=== PATIENT | male | born 1950 | race Hispanic/Latino ===

== ENCOUNTER 2017-12-30 07:45 | Inpatient (IN) | payer MEDICARE, OTHER ==
[2017-12-24 11:15] VITALS: BMI 20.7
[2018-01-01] MEDS ORDERED: Lactated Ringer's 1,000 ML IV ONE ×4 (07:45→14:05)
[2018-01-01] MEDS ORDERED: Propofol 10 mg/ml Inj (20 ML) ONE (07:55)
[2018-01-01] MEDS ORDERED: Midazolam 2 MG/2 ML VIAL ONE ×2 (07:55→13:10)
[2018-01-01] MEDS ORDERED: cefTRIAXone 1 gm 1 GM/100 ML BAG IVPB ONE (08:03)
[2018-01-01] MEDS ORDERED: Neostigmine Methylsulfate 3mg/3ml Syringe IV ONE (10:56)
[2018-01-01] MEDS ORDERED: Sodium Chloride 0.9% 20 ML IV ONE (11:17)
[2018-01-01] MEDS ORDERED: Bupivacaine 0.5% Inj(30mL) ONE (11:17)
[2018-01-01] MEDS ORDERED: Lactated Ringer's 500 ML IV SCH (12:00)
--- NOTE | 2018-01-01 13:36 | PCM.ANESB5 ---
Transverse Abdominis Block - Transverse Abdominis Plane Date of Procedure: 01/01/18 Anesthesiologist: Gt Pre-Procedure Diagnosis: BPH Procedure Performed: Transverse Abdominis Plane Nerve Block Left - Procedure Transverse Abdominis Plane Nerve Block: The procedure was explained to the patient that it is for post-operative pain management and would be performed after surgery. Consent was obtained prior to surgery after a thorough discussion with the patient regarding the benefits and possible complications of transverse abdominis plane block. After the surgery had concluded and before the patient emerged from general anesthesia, time-out was held with the circulating nurse to re-confirm the appropriate block. With the patient in supine position, the ultrasound probe was placed transverse to the abdominal wall at the mid-axillary line above the iliac crest of the appropriate side. The skin, subcutaneous tissue, fat, external oblique muscle, internal oblique muscle, and the transverse abdominis muscle were identified. The general area of the block site was then prepped with Betadine three times. At this point, a # 21-gauge Stimuplex 4-inch needle was inserted posterior to and in plane with the ultrasound probe and directed anteriorly. Needle was advanced under direct ultrasound visualization until it reached the plane between the internal oblique and transverse abdominis muscles. After appropriate placement, 2mL of local anesthetic solution was injected. When the transverse abdominis plane was observed expanding in an ellipsoid way, the rest of the solution was slowly injected. A total of 20 ml 0.25% bupivicaine was used for this block. The needle was then removed and sterile dressing was applied. Visualization attempted on right side, but unable. The patient had stable vital signs throughout and had no untoward complications after emergence from general anesthesia in the recovery room.
[2018-01-01] MEDS: ceFAZolin 1 GM in Sodium Chloride 0.9% 100 ML IVPB SCH ×2 (14:05→21:09)
[2018-01-01] MEDS: Dextrose 5%/0.45% NS 1,000 ML IV SCH (18:30)
[2018-01-02] MEDS: Lactated Ringer's 500 ML IV SCH ×17 (01:28→23:45)
[2018-01-02] MEDS: ceFAZolin 1 GM in Sodium Chloride 0.9% 100 ML IVPB SCH ×3 (05:25→21:37)
[2018-01-02 08:32] LABS: ALB/GLOB RATIO 1.2 (1.0-2.1); ALBUMIN 3.1 g/dL (3.5-5.0); ALT/SGPT 27 U/L (21-72); AST/SGOT 20 U/L (17-59); BLOOD UREA NITROGEN 11 mg/dL (9-20); GFR AFRICAN-AMERICAN > 60; GFR NON-AFRICAN AMERICAN > 60
[2018-01-02 08:33] LABS: BASO % 0.4 % (0.0-2.0); EOS # 0.1 K/uL (0.0-0.7); EOS % 1.4 % (0.0-4.0); LYMPH # 0.8 K/uL (1.0-4.3); LYMPH % 10.1 % (20.0-40.0); MEAN CORPUSCULAR HGB CONC 35.9 g/dL (33.0-37.0); MEAN PLATELET VOLUME 9.9 fL (7.2-11.7); MONO # 0.9 K/uL (0.0-0.8); MONO % 11.6 % (0.0-10.0); NEUT # 5.9 K/uL (1.8-7.0); NEUT % 76.5 % (50.0-75.0); NRBC % 0.1 % (0.0-2.0); RBC 3.55 Mil/uL (4.40-5.90); RED CELL DISTRIBUTION WIDTH 12.6 % (11.5-14.5); WHITE BLOOD COUNT 7.7 K/uL (4.8-10.8)
[2018-01-02 08:36] LABS: HEMOGLOBIN 11.7 g/dL (12.0-18.0); MEAN CELL VOLUME 91.8 fL (80.0-94.0)
[2018-01-02] MEDS: Dextrose 5%/0.45% NS 1,000 ML IV SCH ×2 (09:33→21:38)
[2018-01-02] MEDS: Acetaminophen-Codeine 300/30 mg Tab PO PRN ×2 (11:51→17:51)
[2018-01-02] MEDS ORDERED: Magnesium Hydroxide Susp 30 ml UD PO ONE ×2 (12:49→13:48)
[2018-01-03] MEDS: Lactated Ringer's 500 ML IV SCH ×5 (00:45→04:45)
[2018-01-03 01:46] VITALS: RESP 20
[2018-01-03] MEDS: ceFAZolin 1 GM in Sodium Chloride 0.9% 100 ML IVPB SCH ×3 (05:10→21:40)
[2018-01-03] MEDS ORDERED: Magnesium Hydroxide Susp 30 ml UD PO ONE (06:27)
--- NOTE | 2018-01-03 15:28 | PCM.URO ---
Urology Progress Note - Objective Lab Studies: Reviewed Intake & Output: Intake & Output 01/02/18 01/03/18 01/03/18 18:59 06:59 18:59 Intake Total 2440 Output Total 5040 2610 Balance -2600 -2610 Intake: Intake, IV Amount 1200 Right Antecubital 1200 Oral 1240 Output: Drainage 40 10 Left Abdomen 15 5 Right Abdomen 25 5 Urine 5000 2600 Urethral (Elise) 5000 2600 Other: # Bowel Movements 0 Vital Signs: Vital Signs - 24 hr 01/02/18 01/02/18 15:43 23:10 Temperature 98.2 F 98.3 F Pulse Rate 70 69 Respiratory 18 20 Rate Blood Pressure 105/55 L 102/61 O2 Sat by Pulse 97 97 Oximetry
--- NOTE | 2018-01-03 18:06 | CP.PCM.CON ---
<Trupti Garcia - Last Filed: 01/03/18 18:02> History of Present Illness - History of Present Illness History of Present Illness: Medical consult note for Dr. Fox: 67 year old male with a past medical history of prostate cancer recently diagnosed now s/p prostectomy on 01/01/[address] Eduardo Singh. Medicine was consulted for medical management. Patient admits to mild abdominal pain controlled with medications. He denied headaches, changes in vision, chest pain , SOB, N/V, numbness/tingling, Jorgensen is in place draining well. Patient states he is ambulating. He is using incentive spirometer at bedside. Patient denies calf tenderness and is wearing SCDs. Patient admits to passing flatus but denies having a BM. No other complaints at this time. He denies other medical history except retinal detachment. He has had 3 hernia repair surgeries. Does not take any medications at home expect vitamins. NKDA. Review of Systems - Constitutional Constitutional: absent: Chills, Fever - EENT Eyes: absent: Blurred Vision, Change in Vision - Cardiovascular Cardiovascular: absent: Chest Pain, Chest Pain at Rest, Syncope - Respiratory Respiratory: absent: Cough, Dyspnea, Dyspnea on Exertion - Gastrointestinal Gastrointestinal: Constipation. absent: Abdominal Pain, Diarrhea, Nausea, Vomiting - Genitourinary Genitourinary: absent: Change in Urinary Stream, Difficulty Urinating Additional comments: jorgensen in - Musculoskeletal Musculoskeletal: absent: Abnormal Gait Past Patient History - Past Medical History & Family History Past Medical History?: Yes - Past Social History Smoking Status: Never Smoked - CARDIAC Hx Cardiac Disorders: No - PULMONARY Hx Respiratory Disorders: No - NEUROLOGICAL Hx Neurological Disorder: No - HEENT Hx HEENT Problems: Yes Other/Comment: DX: DETACHED RETINA -RIGHT - RENAL Hx Chronic Kidney Disease: No - ENDOCRINE/METABOLIC Hx Endocrine Disorders: No - HEMATOLOGICAL/ONCOLOGICAL Hx Blood Disorders: No - INTEGUMENTARY Hx Dermatological Problems: No - MUSCULOSKELETAL/RHEUMATOLOGICAL Hx Musculoskeletal Disorders: No Hx Falls: No - GASTROINTESTINAL Hx Gastrointestinal Disorders: No - GENITOURINARY/GYNECOLOGICAL Hx Genitourinary Disorders: Yes Hx Prostate Cancer: Yes - PSYCHIATRIC Hx Psychophysiologic Disorder: No Hx Substance Use: No - SURGICAL HISTORY Hx Surgeries: Yes Hx Eye Surgery: Yes Hx Herniorrhaphy: Yes (BILAT. INGUINAL HERNIA REPAIR) - ANESTHESIA Hx Anesthesia: Yes Hx Anesthesia Reactions: Yes (VOMITING) Hx Malignant Hyperthermia: No Has any member of the family had a problem w/ anesthesia?: No Meds Allergies/Adverse Reactions: Allergies Allergy/AdvReac Type Severity Reaction Status Date / Time No Known Allergies Allergy Verified 12/24/17 11:15 - Medications Medications: Current Medications Acetaminophen/Codeine Phosphate (Tylenol/Codeine 300 Mg/30 Mg) 1 ea PO Q6 PRN PRN Reason: Pain, severe (8-10) Last Admin: 01/02/18 17:51 Dose: 1 ea Cefazolin Sodium 1 gm/ Sodium (Chloride) 100 mls @ 100 mls/hr IVPB Q8H [facility] Last Admin: 01/03/18 13:31 Dose: 100 mls/hr Lactated Ringer's (Lactated Ringer's) 500 mls @ 500 mls/hr IV .Q1H [facility] Last Admin: 01/03/18 04:45 Dose: Not Given Ondansetron HCl (Zofran Inj) 4 mg IVP Q8 PRN PRN Reason: Nausea/Vomiting Physical Exam - Constitutional Appears: Non-toxic, No Acute Distress - Head Exam Head Exam: ATRAUMATIC, NORMAL INSPECTION - Eye Exam Eye Exam: EOMI, PERRL Pupil Exam: NORMAL ACCOMODATION - ENT Exam ENT Exam: Mucous Membranes Moist - Respiratory Exam Respiratory Exam: Clear to Auscultation Bilateral, NORMAL BREATHING PATTERN. absent: Respiratory Distress - Cardiovascular Exam Cardiovascular Exam: REGULAR RHYTHM, +S1, +S2 - GI/Abdominal Exam GI & Abdominal Exam: Hypoactive Bowel Sounds, Soft. absent: Distended, Firm, Guarding, Tenderness - Extremities Exam Extremities exam: Positive for: normal inspection. Negative for: calf tenderness - Back Exam Back exam: NORMAL INSPECTION. absent: CVA tenderness (L), CVA tenderness (R), paraspinal tenderness - Neurological Exam Neurological exam: Alert, CN II-XII Intact, Normal Gait, Oriented x3 - Psychiatric Exam Psychiatric exam: Normal Affect, Normal Mood Results - Vital Signs Recent Vital Signs: Last Vital Signs Temp 97.3 F L 01/03/18 16:00 Pulse 63 01/03/18 16:00 Resp 20 01/03/18 16:00 BP 127/74 01/03/18 16:00 Pulse Ox 99 01/03/18 16:00 - Labs Result Diagrams: 01/02/18 07:54 02/03/18 07:54 Assessment & Plan - Assessment and Plan (Free Text) Assessment: S/P prestectomy for prostate cancer (01/01/18) POD #[address] Eduardo Layton SCDS Regular diet Incentive spirometer Tyelnol/codeine PO prn pain Cefazolin 1 gram IVPB Q8 Zofran prn Lovenox 40mg SC daily Anemia Hgb 11.7 likely secondy to surgery no hx of anemia will f/u hgb in the am Hyponatremia Na 129 stopped LR since patient is eating well and drinking fluids f/u am labs All vitals stable. No tachycardic, BP well controlled. <Laverne Fox V - Last Filed: 01/04/18 16:27> Meds - Medications Medications: Current Medications Acetaminophen/Codeine Phosphate (Tylenol/Codeine 300 Mg/30 Mg) 1 ea PO Q6 PRN PRN Reason: Pain, severe (8-10) Last Admin: 01/02/18 17:51 Dose: 1 ea Cefazolin Sodium 1 gm/ Sodium (Chloride) 100 mls @ 100 mls/hr IVPB Q8H [facility] Last Admin: 01/04/18 14:00 Dose: 100 mls/hr Ondansetron HCl (Zofran Inj) 4 mg IVP Q8 PRN PRN Reason: Nausea/Vomiting Results - Vital Signs Recent Vital Signs: Last Vital Signs Temp 98.0 F 01/04/18 07:10 Pulse 76 01/04/18 07:10 Resp 20 01/04/18 07:10 BP 136/65 01/04/18 07:10 Pulse Ox 97 01/04/18 07:10 - Labs Result Diagrams: 01/04/18 06:34 01/04/18 06:34 Labs: Laboratory Results - last 24 hr 01/04/18 01/04/18 06:34 06:34 WBC 7.5 RBC 4.00 L Hgb 13.1 Hct 37.6 MCV 94.1 H D MCH 32.8 H MCHC 34.9 RDW 13.0 Plt Count 215 MPV 10.0 Neut % (Auto) 59.8 Lymph % (Auto) 21.0 [place] % (Auto) 8.2 Eos % (Auto) 10.1 H Baso % (Auto) 0.9 Neut # (Auto) 4.5 Lymph # (Auto) 1.6 [place] # (Auto) 0.6 Eos # (Auto) 0.8 H Baso # (Auto) 0.1 Sodium 135 Potassium 4.3 Chloride 99 Carbon Dioxide 29 Anion Gap 11 BUN 11 Creatinine 0.7 L Est GFR ( Amer) > 60 Est GFR (Non-Af Amer) > 60 Random Glucose 92 Calcium 8.9 Phosphorus 2.9 Magnesium 2.0 Total Bilirubin 0.5 AST 25 ALT 28 Alkaline Phosphatase 39 Total Protein 6.9 Albumin 3.6 Globulin 3.2 Albumin/Globulin Ratio 1.1 Attending/Attestation - Attestation I have personally seen and examined this patient.: Yes I have fully participated in the care of the patient.: Yes I have reviewed all pertinent clinical information: Yes Notes (Text): This is late computer entry for 01/03/18. Patient seen, examined and case discussed with day-time resident and urologist, Dr. Eduardo Layton. Patient is very pleasant gentleman, reading his bible at bedside. Patient reports constipation, has had flatus but has not had a bowel movement post procedure. Patient underwent prostatectomy for suspected prostate cancer, patient is awaiting pathology report which is not available at the time of my assessment. patient denies prior medical history. Case discussed with urology, given mild anemia, suspects secondary to recent urologic procedure. We will provide miralax and prune juice to alleviate patient's constipation. Patient reports he usually goes at 5:30AM every morning. Patient has mild hyponatremic, neurologically intact, will monitor sodium in the AM. Will hold anticoagulation and defer to urology to determine chemical anticoagulation given he has underwent recent urologic procedure. Assessment/Plan 1) S/P prostatectomy for prostate cancer (01/01/18) * patient is postoperative day 2 from procedure. * preoperative/intraoperative/postoperative per urology management * Chemical anticoagulation defer to urology (updated from the resident's note) * Disregard Lovenox order in resident; it is as per discretion of urology, order is cancelled * Pain management per urology * SCDS bl * Recommended incentive spirometer * Regular diet * Tylenol with codeine prn severe pain * Cefazolin 1 gram IVPB Q8H (Active since 01/01/18) * Incentive spirometer * Tyelnol/codeine PO prn pain 2) Anemia, Acute * case discussed with urology, likely secondary to surgical blood loss. * Monitor H/H/ * If anemia does not improve, may need anemia workup 3. Hyponatremia * Na 129 * Stopped LR since patient is eating well and drinking fluids * Monitor Na+ * Asymptomatic * Neurologically intact 4) Constipation * Advised to prune juice and miralax to help alleivate constipation Case discussed with urology, Dr. Eduardo Layton 01/03/18.
[2018-01-03] MEDS ORDERED: Enoxaparin 40 mg Syringe SC SCH (19:00)
[2018-01-03] MEDS ORDERED: POLYETHYLENE GLYCOL 3350 17 GM/Dose PACKET PO ONE (19:00)
[2018-01-04] MEDS: ceFAZolin 1 GM in Sodium Chloride 0.9% 100 ML IVPB SCH ×3 (06:00→21:26)
[2018-01-04 06:40] LABS: BASO # 0.1 K/uL (0.0-0.2); BASO % 0.9 % (0.0-2.0); EOS # 0.8 K/uL (0.0-0.7); EOS % 10.1 % (0.0-4.0); HEMOGLOBIN 13.1 g/dL (12.0-18.0); LYMPH # 1.6 K/uL (1.0-4.3); MEAN CELL VOLUME 94.1 fL (80.0-94.0); MEAN CORPUSCULAR HEMOGLOBIN 32.8 pg (27.0-31.0); MEAN CORPUSCULAR HGB CONC 34.9 g/dL (33.0-37.0); MONO # 0.6 K/uL (0.0-0.8); MONO % 8.2 % (0.0-10.0); NEUT # 4.5 K/uL (1.8-7.0); NEUT % 59.8 % (50.0-75.0); WHITE BLOOD COUNT 7.5 K/uL (4.8-10.8)
[2018-01-04 07:04] LABS: ALB/GLOB RATIO 1.1 (1.0-2.1); ALBUMIN 3.6 g/dL (3.5-5.0); ALT/SGPT 28 U/L (21-72); AST/SGOT 25 U/L (17-59); BLOOD UREA NITROGEN 11 mg/dL (9-20); CALCIUM 8.9 mg/dl (8.6-10.4); GFR AFRICAN-AMERICAN > 60; GFR NON-AFRICAN AMERICAN > 60
--- NOTE | 2018-01-04 07:55 | CP.PCM.PN ---
Objective - Vital Signs/Intake and Output Vital Signs (last 24 hours): Temp Pulse Resp BP Pulse Ox 98.3 F 70 20 116/69 96 01/03/18 23:10 01/03/18 23:10 01/03/18 23:10 01/03/18 23:10 01/03/18 23:10 Intake and Output: 01/04/18 01/04/18 06:59 18:59 Intake Total 2160 Output Total 4030 Balance -1870 - Medications Medications: Current Medications Acetaminophen/Codeine Phosphate (Tylenol/Codeine 300 Mg/30 Mg) 1 ea PO Q6 PRN PRN Reason: Pain, severe (8-10) Last Admin: 01/02/18 17:51 Dose: 1 ea Cefazolin Sodium 1 gm/ Sodium (Chloride) 100 mls @ 100 mls/hr IVPB Q8H [facility] Last Admin: 01/04/18 06:00 Dose: 100 mls/hr Ondansetron HCl (Zofran Inj) 4 mg IVP Q8 PRN PRN Reason: Nausea/Vomiting - Labs Labs: 01/04/18 06:34 01/04/18 06:34
--- NOTE | 2018-01-04 10:30 | PN ---
DATE: 01/01/2018 POSTOPERATIVE NOTE SUBJECTIVE: The patient is doing well. Vital signs are stable. Labs are all stable. The patient is overall doing well. Without complication and progressing along. We will start with a clear liquid diet and advance slowly. Héctor Layton MD
--- NOTE | 2018-01-04 12:25 | CP.PCM.PN ---
<Trupti Garcia - Last Filed: 01/04/18 12:22> Subjective - Date & Time of Evaluation Date of Evaluation: 01/04/18 Time of Evaluation: 08:00 - Subjective Subjective: Medicine progress note for Dr. Sky: Patient was seen and examined at bedside this morning. Patient admits to having a BM. He is ambulating well, and using SCDs. He denied SOB or calf tenderness. Patient is suing incentive spirometer at bedside. He states his pain is well controlled. No new/acute complaints today. He is tolerating diet without N/V. Objective - Vital Signs/Intake and Output Vital Signs (last 24 hours): Temp Pulse Resp BP Pulse Ox 98.0 F 76 20 136/65 97 01/04/18 07:10 01/04/18 07:10 01/04/18 07:10 01/04/18 07:10 01/04/18 07:10 Intake and Output: 01/04/18 01/04/18 06:59 18:59 Intake Total 2160 Output Total 4030 Balance -1870 - Medications Medications: Current Medications Acetaminophen/Codeine Phosphate (Tylenol/Codeine 300 Mg/30 Mg) 1 ea PO Q6 PRN PRN Reason: Pain, severe (8-10) Last Admin: 01/02/18 17:51 Dose: 1 ea Cefazolin Sodium 1 gm/ Sodium (Chloride) 100 mls @ 100 mls/hr IVPB Q8H [facility] Last Admin: 01/04/18 06:00 Dose: 100 mls/hr Ondansetron HCl (Zofran Inj) 4 mg IVP Q8 PRN PRN Reason: Nausea/Vomiting - Labs Labs: 01/04/18 06:34 01/04/18 06:34 - Constitutional Appears: Non-toxic, No Acute Distress - Head Exam Head Exam: ATRAUMATIC, NORMAL INSPECTION - Eye Exam Eye Exam: EOMI, Normal appearance - ENT Exam ENT Exam: Mucous Membranes Moist - Respiratory Exam Respiratory Exam: Clear to Ausculation Bilateral, NORMAL BREATHING PATTERN. absent: Respiratory Distress - Cardiovascular Exam Cardiovascular Exam: REGULAR RHYTHM, +S1, +S2 - GI/Abdominal Exam GI & Abdominal Exam: Soft, Normal Bowel Sounds. absent: Distended, Firm, Guarding, Tenderness - Exam Additional comments: jorgensen in place, good output - Extremities Exam Extremities Exam: Normal Inspection - Back Exam Back Exam: NORMAL INSPECTION - Neurological Exam Neurological Exam: Alert, Awake, CN II-XII Intact, Normal Gait, Oriented x3 Neuro motor strength exam: Left Upper Extremity: 5, Right Upper Extremity: 5, Left Lower Extremity: 5, Right Lower Extremity: 5 - Psychiatric Exam Psychiatric exam: Normal Affect, Normal Mood - Skin Skin Exam: Dry, Intact, Normal Color, Warm Assessment and Plan - Assessment and Plan (Free Text) Assessment: S/P prestectomy for prostate cancer (01/01/18) POD #[address] Eduardo Layton SCDS Regular diet Incentive spirometer Tyelnol/codeine PO prn pain Cefazolin 1 gram IVPB Q8 Zofran prn Patient passing flatus and has had BM with one dose of miralax given 2/4PM Anemia Resolved Hgb 13.1 up from Hgb 11.7 yesterday likely secondy to surgery no hx of anemia will f/u hgb in the am Hyponatremia Resolved Na 135 (was 129 yesterday before the discontinuation of fluids stopped LR since patient is eating well and drinking fluids All vitals stable. No tachycardic, BP well controlled. DC orders per urology - patient is medically clear for DC <Seth Sky H - Last Filed: 01/04/18 15:43> Objective - Vital Signs/Intake and Output Vital Signs (last 24 hours): Temp Pulse Resp BP Pulse Ox 98.0 F 76 20 136/65 97 01/04/18 07:10 01/04/18 07:10 01/04/18 07:10 01/04/18 07:10 01/04/18 07:10 Intake and Output: 01/04/18 01/04/18 06:59 18:59 Intake Total 2160 Output Total 4030 Balance -1870 - Medications Medications: Current Medications Acetaminophen/Codeine Phosphate (Tylenol/Codeine 300 Mg/30 Mg) 1 ea PO Q6 PRN PRN Reason: Pain, severe (8-10) Last Admin: 01/02/18 17:51 Dose: 1 ea Cefazolin Sodium 1 gm/ Sodium (Chloride) 100 mls @ 100 mls/hr IVPB Q8H [facility] Last Admin: 01/04/18 14:00 Dose: 100 mls/hr Ondansetron HCl (Zofran Inj) 4 mg IVP Q8 PRN PRN Reason: Nausea/Vomiting - Labs Labs: 01/04/18 06:34 01/04/18 06:34 Attending/Attestation - Attestation I have personally seen and examined this patient.: Yes I have fully participated in the care of the patient.: Yes I have reviewed all pertinent clinical information, including history, physical exam and plan: Yes Notes (Text): 01/04/18 15:43 Medical consult: Patient was seen and examined by me, agrees the above note by the medical information specialist. The patient is now postop day 3 of a radical prostatectomy. He reports feeling well. He did not have any acute complaints or concerns. He denied having problems overnight He explains that he's been able to ambulate without any problems. He also had a bowel movement earlier in the morning. Per review of his lab work his white blood cell count stable, his hemoglobin is also stable as well. When we first started seeing the patient he had a lower sodium and since then this is now stabilized as well He is aware that he's can have to follow-up with urology upon discharge. Thank you very much, Seth Sky
--- NOTE | 2018-01-04 14:20 | HP ---
UROLOGY ADMISSION HISTORY AND PHYSICAL REASON FOR ADMISSION: Treatment of prostate cancer. HISTORY OF PRESENT ILLNESS: A very pleasant gentleman initially diagnosed with an elevated PSA, we then did a transrectal ultrasound of the prostate, then got a prostate biopsy which turned out to be an adenocarcinoma of the prostate with a Cullen 3 plus 3 in a few cores. Follow through of the chart actually reveals 3+4, Cullen 7. Explaining to the patient risks, benefits and treatment options. I did explain radiation very carefully. I explained the idea of surgical intervention. I have explained open surgery versus robotic surgery. I explained active surveillance. I explained also other options that are available for the patient. I encouraged the patient in fact to get a second opinion. After doing all these different options, the patient has elected to undergo an open radical prostatectomy for which he is being admitted now. In preparation for the procedure, I offered the patient to see his medical doctor to obtain medical clearance. After doing all this, the patient is now prepared for surgery. We did again discuss the options, the biopsies quite sometime ago. After discussing all these different options, the patient is here now and being admitted. PAST MEDICAL AND SURGICAL HISTORY: All listed on the chart. No history of an CT or CVA. Otherwise essentially unremarkable. REVIEW OF SYSTEMS: As listed above, no constitutional complaints, weight loss, chest pain or night sweats. MEDICATIONS: See chart. ALLERGIES: NONE. SOCIAL HISTORY: Essentially otherwise unremarkable. 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 Otherwise unremarkable. No history of alcohol abuse. He is a nonsmoker. PHYSICAL EXAMINATION: GENERAL: A well-nourished thin male, in no apparent distress, appears the stated age. VITAL SIGNS: Within normal limits, they are included in the chart. HEENT: Normocephalic, atraumatic. NECK: He has no cervical or axillary lymphadenopathy. LUNGS: Clear. HEART: Normal S1, S2. No appreciable murmurs. ABDOMEN: Overall soft, no CVA tenderness. GENITOURINARY: He has a normal phallus without discharge. No testicular mass. RECTAL: A 30 gm prostate. Not specifically any major abnormalities. biopsy results. No real major nodules. LOWER EXTREMITIES: Unremarkable. NEUROLOGIC: Otherwise unremarkable. LABORATORY DATA: See chart. Pathology is on the chart as well. DIAGNOSIS: Prostate cancer, clinically localized prostate cancer. We discussed options, workup, metastatic spread, risks and benefits and alternatives. We discussed active surveillance. We discussed radiation. We discussed surgical intervention. We discussed both robotic surgery and open surgery. After discussing all these options, the patient is now being admitted for an open radical retropubic prostatectomy. For various reasons in terms of a robotic approach why the patient is coming here. After discussing all those options, he is here today. In preparation for today, we have arranged to have an retail event assistant surgeon, as I believe that will do the patient well. I have also arranged for a urologic surgeon for an open procedure as I think this is a better approach and in absolutely necessity. I have discussed with the patient the risks of urinary incontinence, risk of erectile dysfunction. I explained even spontaneous erection, even if just alone are at risk. After discussing all those options with the patient, I have also discussed the risks of bowel injury, I explained risks of rectal injury, I explained all these risks to the patient. After explaining all those options, I also explained the benefits of surgical intervention. The patient also has some moderate voiding dysfunction. He has irritative and obstructive urinary complaints. After discussing all these optimization, he is here today for an open radical retropubic prostatectomy. PLAN: So the plan is as follows; 1. We will provide antibiotic prophylaxis. 2. There is a medical clearance on the chart. 3. We will proceed with an open radical retropubic prostatectomy and then further plans will follow. Héctor Layton MD
[2018-01-05] MEDS: ceFAZolin 1 GM in Sodium Chloride 0.9% 100 ML IVPB SCH (06:10)
--- NOTE | 2018-01-05 08:18 | OP ---
PROCEDURE DATE: 01/01/2018. PREOPERATIVE DIAGNOSES: Clinically localized prostate cancer, voiding dysfunction. POSTOPERATIVE DIAGNOSES: Clinically localized prostate cancer, voiding dysfunction. PROCEDURE: Open radical retropubic prostatectomy with bilateral pelvic lymph node dissection. SURGEON: Severino Layton MD FOOD CART ATTENDANT: Chante Layton MD, board certified urologic surgeon absolute necessity for this procedure. DRAINS: Elise catheter. A 20-[place]er Elise catheter with 50 mL balloon, and ANA x2 that were left in the area of the pelvic node dissection. ESTIMATED BLOOD LOSS: The blood loss was less than 300 mL. COMPLICATIONS: There were no complications. SPECIMEN: Sent out are the prostate including the seminal vesicle and the vas deferens, also left and right obturator lymph node packages. INDICATIONS: See the history and physical for further details,. A pleasant gentleman, we discussed options, he has clinically localized prostate cancer. We discussed options with the patient, active surveillance, open surgery, radical versus robotic. We discussed radiation therapy. After discussing all the options, risks, benefits, and treatment alternatives, and he is now here for the above procedure. In preparation today for the surgical intervention I also arranged to have a Board Certified second urologist in the belief that this will serve the patient better for a better surgical result and outcome and this needs open settings with a prostate with a cancer with oncology tumor and a very deep surgical intervention. After discussing all the options, we have made arrangement to have a second urologic surgeon who is an absolute necessity for the procedure. OPERATIVE FINDINGS: The pelvic lymph node packages of minimal size. One of the two prostate was actually little more nodular than palpable on physical exam. The dissection otherwise was unremarkable and we were able to deliver the specimen. DESCRIPTION OF PROCEDURE: After obtaining informed consent, the patient was placed on the operating table. Routine monitor was placed. Time-out was called. We had been giving the patient antibiotic prophylaxis prior to the procedure. We had prepped the patient. We positioned the patient in a supine position with a break in the table. Time-out had been called. We confirmed about patient positioning, etc. The position in the table is as follows, supine position with a break, the patient's iliac crest over the break of the table, we then broke the table in a flexed position and then formed a Trendelenburg for maximum stretch on the prostate. The Elise catheter was inserted on a sterile field without any difficulty. We inflated the balloon with about 25 mL to help us retracted. We then made a midline skin incision from below the umbilicus down to the symphysis pubis. A relatively short incision of about 4-5 cm. The patient is relatively thin, we got down to the underlying fat and fascia. We now saw the rectus fascia and we divided and we go one layer deeper. We now swept off the pelvic side quick on both left and right side, happened to be that the left side of the patient is a little more free, the right side was little more adherent with no obvious explanation. We began our lymph node dissection, limited the dissection out posteriorly. We can see the obturator nerve on both sides. We got to the pelvic side wall. We identified our iliac vein. We held it out of the way with the vein retractor and we took of the lymph node package. There was really minimal tissue on each side, but it was sent off for final section. We achieved hemostasis and lymphostasis using the Harmonic scalpel. We now placed our drains, sponges, as is our standard and we will remove them later. I had the nurse wearing a clamp to confirm so there is two clamps on her gown while we leave the sponges in. We now turned our attention, we readjusted the middle blade to put the prostate on maximum and ride on maximum stretch we held the balloon in place. We now began, we took the end of pelvic fascia. We swept the side wall to go posteriorly towards the rectum anteriorly towards the dorsal venous complex, sweep nicely down on both sides with a minimal bleed. At this point, we dissected out the dorsal vein. We stayed anterior to the catheter. We did have our right angle with a long tip. We tied off with a #1 Vicryl and 0 Vicryl with a total of three ties. We now put a Boom and secured the bladder for back bleeding. We made sure not to get the catheter in place and we used a large chromic needle for this. We now opened the dorsal venous complex, there was minimal bleeding if any actually really no bleeding was noted. We now inspected carefully. We now dissected out sharply and bluntly the urethra. We can feel the urethra nicely. We got a nice stump. As we dissected out the urethra, we placed our standard Monocryl UR 6 stitches 1,3, 5, 7, 9, and 11, First we did 1, 3, 5, 9 and 11. We now had the posterior urethra. We now divided the catheter. We can see the posterior urethra very nicely clearly. We took the 5 and 7 sutures. We lined them up in my standard is curved clamp, straight clamp, and a longer curved clamp and we placed them with a towel in our general gentle fashion. We had cut the posterior urethra at this point. With the urethra divided, dorsal venous complex divided, we placed this away, put a lap sponge. We now go posteriorly and divided off the prostate posteriorly very gently, carefully, and we climbed up the lateral side wall. We used the Harmonic scalpel to achieve hemostasis all the way back very nicely it dissects all the way back to the bladder neck on both sides. We can feel it very well. We now turned our attention to midline. We put a sponge on the stick and pulled the prostate up. We dissected the midline. We teased up the vas deferens on each side and seminal vesicles. They dissected out nicely and freely. We now turned our attention towards the bladder neck with the whole posterior being free. We fit off the rectum nicely. Once we did this, we left the bladder neck, we can feel the balloon, we let it down a little bit. We took the bladder neck. We did not do a bladder neck sparing just to make sure that our margins would be acceptable. We opened up the bladder neck. We dissected out the bladder, prostate dissected off the bladder. It was actually little bit adherent at this point right to the bladder neck, I believe to free it off and get a nice margin. Now we have bladder relatively with an open neck. Just to confirm before we close, we passed our open ended 4-[place]er Burgess-tip catheter in each ureteral orifice, they catch easily up each orifice. We now closed our bladder neck, as we close the bladder neck, we did it in a tennis racket fashion and we found a new bladder neck we pucker out the mucosal edges. We closed the tennis racket fashion in 2 layers with chromic, the entire time for our closure we are keeping the ureteral catheters in to make sure that we keep the ureters nicely protected. With this in mind, we now irrigated actually the bladder, the bladder was actually very nicely tight. There was no leakage from our tennis racket. We now irrigated the prostatic field. There was no bleeding to speak off we inspected very carefully. We were now ready for re-anastomosis on the closure. We delivered the Elise catheter then we checked the balloon. We delivered through the middle. We kept it out of our way while we were inserting the anastomotic stitches in the bladder neck. We used the second catheter to keep the bladder neck open. We counted for five, we used an 18-[place]er there although subsequently we will leave the 20-[place]er in. Entire time while we were closing the bladder neck as mentioned we had the ureteral orifice protected. We bring on anastomosis sutures now, we delivered the Elise catheter, we inflated the balloon, we put 40 mL. standard. We now brought the bladder neck down to the urethra gently, carefully, slowly and we secured anastomotic sutures. We irrigated, it irrigates beautifully. We inspected for bleeding. We were ready for our closure. We put 2 JPs back at our pelvic lymph node dissection area. We took out the sponge that were there, the nurse removed her clamps. We now began our closure of the fascia. We actually reinflated the rectus muscle belly just gently with a chromic and now we turned our attention to the fascia, which we closed with a PDS. We delivered the drains for the main wound, we secured those in place with a skin suture. We applied skin chepe, dry dressings, sterile dressing applied. We secured a Elise catheter in place. The patient tolerated the procedure well without any complications. Héctor Layton MD
[2018-01-05 08:25] VITALS: BP 135/81; PULSE 67; TEMP 976; O2SAT 100
== END 2018-01-05 12:42 | disposition home or self-care (01) | DRG 707 ==
LOC: C.9S 01-01 06:15 → C.6T 01-01 10:53 → C.5E 01-04 17:17 → C.6T 01-04 19:20
PROVIDERS: ADMIT Urology; ATTEND Urology
PROC: 07TC0ZZ Resection of Pelvis Lymphatic, Open Approach (ICD-10-PCS; 2018-01-01)
PROC: 3E0T3BZ Introduction of Anesthetic Agent into Peripheral Nerves and Plexi, Percutaneous Approach (ICD-10-PCS; 2018-01-01)
PROC: 0VT00ZZ Resection of Prostate, Open Approach (ICD-10-PCS; principal; 2018-01-01 07:30)
DX: C61 Malignant neoplasm of prostate (principal); E87.1 Hypo-osmolality and hyponatremia; G89.18 Other acute postprocedural pain; D64.9 Anemia, unspecified; K59.00 Constipation, unspecified; N40.0 Benign prostatic hyperplasia without lower urinary tract symptoms

== ENCOUNTER 2018-05-31 11:43 | Day surgery (SDC) | payer OTHER ==
[2017-12-24 11:15] VITALS: BMI 20.7
[2018-05-31 12:30] LABS: BASO % 0.2 % (0.0-2.0); EOS # 0.5 K/uL (0.0-0.7); EOS % 7.5 % (0.0-4.0); HEMOGLOBIN 15.1 g/dL (12.0-18.0); LYMPH % 31.9 % (20.0-40.0); MEAN CELL VOLUME 92.1 fL (80.0-94.0); MEAN CORPUSCULAR HEMOGLOBIN 31.6 pg (27.0-31.0); MEAN CORPUSCULAR HGB CONC 34.4 g/dL (33.0-37.0); MEAN PLATELET VOLUME 9.1 fL (7.2-11.7); MONO # 0.7 K/uL (0.0-0.8); MONO % 10.8 % (0.0-10.0); NEUT # 3.1 K/uL (1.8-7.0); NEUT % 49.6 % (50.0-75.0); NRBC % 0.1 % (0.0-2.0); RBC 4.77 Mil/uL (4.40-5.90); RED CELL DISTRIBUTION WIDTH 13.1 % (11.5-14.5); WHITE BLOOD COUNT 6.2 K/uL (4.8-10.8)
[2018-05-31 12:46] LABS: BLOOD UREA NITROGEN 17 mg/dL (9-20); CALCIUM 9.5 mg/dl (8.6-10.4); GFR AFRICAN-AMERICAN > 60; GFR NON-AFRICAN AMERICAN > 60
[2018-05-31] MEDS ORDERED: cefTRIAXone IV 1 gm in Dextros 50 ML IVPB ONE (14:39)
[2018-05-31] MEDS ORDERED: Propofol 10 mg/ml Inj (20 ML) ONE (15:17)
[2018-05-31] MEDS ORDERED: HYDROmorphone 0.5 mg/0.5 ml ISec IVP PRN (15:55)
[2018-05-31 17:24] VITALS: BP 123/70; PULSE 68; RESP 18; TEMP 97; O2SAT 100
--- NOTE | 2018-06-01 02:35 | HP ---
UROLOGY ADMISSION HISTORY AND PHYSICAL REASON FOR ADMISSION: For treatment of stricture. HISTORY OF PRESENT ILLNESS: Very pleasant gentleman who underwent a radical retropubic prostatectomy. He is currently neuroendocrine differentiation prostate cancer, but he has a bladder neck contracture, and we are doing an IOU today. discussed with the patient, I recommended an intermittent catheterization but the patient was reluctant. But now, he think he will be willing to do it today. He is here for cystoscopy IOU. PAST MEDICAL HISTORY AND PAST SURGICAL HISTORY: Otherwise unchanged. Status post open radical retropubic prostatectomy. REVIEW OF SYSTEMS: Listed above. No weight loss, chest pain, or shortness of breath. MEDICATIONS: See the chart. ALLERGIES: SEE CHART. PHYSICAL EXAMINATION: GENERAL: A well-nourished male, in no apparent distress. VITAL SIGNS: Within normal limit. NECK: No cervical or axillary lymphadenopathy. LUNGS: Clear. HEART: Normal heart sounds. ABDOMEN: Overall soft and nontender. No flank mass was appreciated. GENITOURINARY: Normal male phallus without discharge. No testicular mass. RECTAL: There is an empty prostatic fossa. LABORATORY DATA: See chart. DIAGNOSES: 1. Bladder neck contracture. 2. Prostate cancer. 3. Voiding dysfunction. ASSESSMENT AND PLAN: The patient is in retention from the above. We are going to do a cystoscopy, IOU today, and we are going to discuss with the patient intermittent catheterization. I discussed with him other options, second opinion, etc, but we are going to plan to proceed. Héctor Layton MD
--- NOTE | 2018-06-01 09:06 | OP ---
PROCEDURE DATE: 05/31/2018 UROLOGY OPERATIVE REPORT PREOPERATIVE DIAGNOSES: Prostate cancer, currently neuroendocrine differentiation. Bladder neck contracture. POSTOPERATIVE DIAGNOSES: Prostate cancer, currently neuroendocrine differentiation. Bladder neck contracture. PROCEDURE: Cystoscopy, internal optical urethrotomy, insertion of a Elise catheter. COMPLICATIONS: There were no complications. BLOOD LOSS: Less than 10 mL. FINDINGS: Normal anterior urethra. No strictures and there is no verumontanum. scar tissue, very thickened bladder neck tissue, but we were able to get a olive tip passed it. Actually looks like there are two areas, but only one goes through and then we made an incision at 12 o'clock position. I opened up, the remainder of the bladder although that was unremarkable. DESCRIPTION OF PROCEDURE: After obtaining informed consent, the patient was placed on the table. Routine monitors were placed. Time-out was called to confirm the patient positioning. We introduced the cystoscope via urethra. No stricture. At the bladder neck, it is well contracted but once we get the little 4-Panamanian olive tip in, we then cut and made a incision anteriorly and then we were able to drive a 22 scope in. The patient tolerated the procedure without complication. We put a kaibab-tip catheter via the urethra over the olive tip catheter. The patient tolerated the procedure without complication. ADDENDUM: I will send him home with the Elise, and we are going to teach him CIC. Héctor Layton MD
--- NOTE | 2018-06-01 23:43 | CARD ---
APPROVED REPORT EKG Measurement Heart [id number] NH [id number] [id number] <Conclusion> Sinus bradycardia Otherwise normal ECG
== END 2018-05-31 17:30 | disposition home or self-care (01) ==
LOC: C.SDS 11:43
PROVIDERS: ATTEND Urology
DX: N32.0 Bladder-neck obstruction (principal); C61 Malignant neoplasm of prostate
CPT/HCPCS: 36415; 52276; 80048; 85025; J0696; J1580

== ENCOUNTER 2018-06-15 05:48 | Inpatient (IN) | payer MEDICARE, OTHER ==
[2018-06-15 05:48] VITALS: BMI 20.7
--- NOTE | 2018-06-15 06:05 | C.PDOC ---
History Of Present Illness patient presents with decreased urination. last voided around [address] layton,urology, yesterday, and was unable to place a jorgensen catheter.Now with some suprapubic discomfort. hs had small amount of hematuria Time Seen by Provider: 06/15/18 06:05 Chief Complaint (Nursing): Male Genitourinary History Per: Patient History/Exam Limitations: no limitations Onset/Duration Of Symptoms: Days Current Symptoms Are (Timing): Still Present Severity: Moderate Pain Scale Rating Of: 4 Quality Of Discomfort: Pressure Associated Symptoms: Urinary Symptoms. denies: Fever, Chills, Nausea Alleviating Factors: None Recent travel outside of the [place]: No Additional History Per: Patient Past Medical History Reviewed: Historical Data, Nursing Documentation, Vital Signs Vital Signs: Last Vital Signs Temp 98.0 F 06/15/18 05:57 Pulse 68 06/15/18 05:57 Resp 16 06/15/18 05:57 BP 138/82 06/15/18 05:57 Pulse Ox 100 06/15/18 06:34 - Medical History PMH: Fractures (HX: FX.LEFT ARM A CHILD-CASTED ONLY) Denies: Chronic Kidney Disease - [facility] Procedures INTRODUCE LOCAL ANESTH IN PERIPH NRV, PLEXI, PERC (01/01/18) RESECTION OF PELVIS LYMPHATIC, OPEN APPROACH (01/01/18) RESECTION OF PROSTATE, OPEN APPROACH (01/01/18) Family History: States: No Known Family Hx - Social History Hx Alcohol Use: No Hx Substance Use: No Review Of Systems Constitutional: Negative for: Fever, Chills Gastrointestinal: Negative for: Nausea, Vomiting, Abdominal Pain Genitourinary: Positive for: Hematuria Musculoskeletal: Negative for: Back Pain Skin: Negative for: Rash Neurological: Negative for: Weakness Psych: Negative for: Anxiety Physical Exam - Physical Exam Appears: Non-toxic Skin: Warm, Dry Oral Mucosa: Moist Neck: Supple Chest: Symmetrical Cardiovascular: Rhythm Regular Back: No CVA Tenderness Male Genital: No Testicular Tenderness, No Inguinal Tenderness Extremity: Normal ROM Extremity: Bilateral: Atraumatic Neurological/Psych: Oriented x3, Normal Speech Gait: Steady ED Course And Treatment - Laboratory Results Result Diagrams: 06/15/18 06:15 O2 Sat by Pulse Oximetry: 100 Pulse Ox Interpretation: Normal Disposition Discussed With : Severino Layton Comment: accepted the pt on his service and took over the care at 6:36AM Doctor Will See Patient In The: Hospital Counseled Patient/Family Regarding: Studies Performed, Diagnosis - Disposition Disposition: HOSPITALIZED Disposition Time: 06:05 Condition: FAIR Forms: [facility] (Swedish) - Clinical Impression Clinical Impression: Acute urinary retention Decision To Admit - Pt Status Changed To: Hospital Disposition Of: Inpatient - Admit Certification Admit to Inpatient:: After my assessment, the patient will require hospitalization for at least two midnights. This is because of the severity of symptoms shown, intensity of services needed, and/or the medical risk in this patient being treated as an outpatient. - InPatient: Physician Admission Certification: I certify that this patient requires 2 or more midnights of care for the following reason:: After my assessment, the patient will require hospitalization for at least two midnights. This is because of the severity of symptoms shown, intensity of services needed, and/or the medical risk in this patient being treated as an outpatient. - . Bed Request Type: Regular Admitting Physician: Severino Layton Patient Diagnosis: Acute urinary retention
[2018-06-15 06:32] LABS: BASO # 0.1 K/uL (0.0-0.2); BASO % 1.2 % (0.0-2.0); EOS # 0.5 K/uL (0.0-0.7); EOS % 7.4 % (0.0-4.0); HEMOGLOBIN 14.4 g/dL (12.0-18.0); LYMPH # 2.2 K/uL (1.0-4.3); LYMPH % 30.1 % (20.0-40.0); MEAN CELL VOLUME 92.1 fL (80.0-94.0); MEAN CORPUSCULAR HEMOGLOBIN 31.9 pg (27.0-31.0); MEAN CORPUSCULAR HGB CONC 34.6 g/dL (33.0-37.0); MEAN PLATELET VOLUME 9.1 fL (7.2-11.7); MONO # 0.7 K/uL (0.0-0.8); MONO % 10.2 % (0.0-10.0); NEUT # 3.7 K/uL (1.8-7.0); NEUT % 51.1 % (50.0-75.0); RBC 4.52 Mil/uL (4.40-5.90); RED CELL DISTRIBUTION WIDTH 13.1 % (11.5-14.5); WHITE BLOOD COUNT 7.2 K/uL (4.8-10.8)
[2018-06-15 06:37] LABS: INR 1.1; PROTHROMBIN TIME 12.4 SECONDS (9.7-12.2)
[2018-06-15 06:41] LABS: ALB/GLOB RATIO 1.4 (1.0-2.1); ALBUMIN 4.1 g/dL (3.5-5.0); ALT/SGPT 37 U/L (21-72); AST/SGOT 25 U/L (17-59); BLOOD UREA NITROGEN 28 mg/dL (9-20); CALCIUM 9.1 mg/dl (8.6-10.4); GFR AFRICAN-AMERICAN > 60; GFR NON-AFRICAN AMERICAN > 60
[2018-06-15 08:18] LABS: URINE BILIRUBIN NEGATIVE (NEGATIVE); URINE BLOOD NEGATIVE (NEGATIVE); URINE CLARITY Hazy (Clear); URINE COLOR Amber (YELLOW); URINE GLUCOSE (UA) NORMAL (Normal); URINE LEUKOCYTE ESTERASE NEG Leu/uL (Negative); URINE PROTEIN NEGATIVE (NEGATIVE); URINE UROBILINOGEN NORMAL mg/dL (0.2-1.0)
[2018-06-15] MEDS ORDERED: cefTRIAXone IV 1 gm in Dextros 50 ML IVPB ONE (15:25)
[2018-06-15] MEDS ORDERED: Propofol 10 mg/ml Inj (20 ML) ONE (15:28)
[2018-06-15] MEDS ORDERED: Midazolam 2 MG/2 ML VIAL ONE (15:28)
[2018-06-15] MEDS ORDERED: HYDROmorphone 0.5 mg/0.5 ml ISec IVP PRN (16:28)
[2018-06-15] MEDS ORDERED: Gentamicin 80 mg in 0.9% NS 80 MG/100 ML BAG IVPB SCH (17:00)
[2018-06-15 17:23] VITALS: BP 117/70; PULSE 60; RESP 20; TEMP 97.8; O2SAT 99
--- NOTE | 2018-06-23 02:07 | HP ---
UROLOGY ADMISSION HISTORY AND PHYSICAL This is one of multiple admissions for Piero Jack. REASON FOR ADMISSION: Cystoscopy, internal optical urethrotomy. HISTORY OF PRESENT ILLNESS: A very pleasant gentleman who has a recalcitrant and stubborn scar at the bladder neck. He is here today for cystoscopy and IOU. See below. PAST MEDICAL AND SURGICAL HISTORY: No other change. He is status post radical retropubic prostatectomy. He is currently and has just been in recurrent urethral stricture. He is here today for cystoscopy and IOU. Then, I am going to teach him CIC. See the addendum below. REVIEW OF SYSTEMS: As listed above other than getting disappointed with the catheter, needing to go back. There is no other bruise. MEDICATIONS: As per chart. ALLERGIES: PER CHART. PHYSICAL EXAMINATION: GENERAL: A well-nourished male, in no apparent distress. VITAL SIGNS: Within normal limits included in the chart. HEENT: Sclerae nonicteric and not injected. No oral thrush. LUNGS: Clear. HEART: Normal S1 and S2. ABDOMEN: Overall soft, nontender. No flank mass appreciated. GENITALIA: Normal phallus without discharge. No testicular masses. RECTAL: There is an empty prostatic . Last PSA is noted. He does have detectable number, may be like 0.1, but it is not 0. DIAGNOSES: Voiding dysfunction, recurrent bladder neck contracture. He is status post radical retropubic prostatectomy. We have not been discussing sexual dysfunction. At this point, we are just wanting to work on his continence and incontinence and overflow. Recurrent stricture disease. Plan today is cystoscopy and internal optical urethrotomy, antibiotic prophylaxis and further plans will follow. I discussed with the patient he has got to learn how to do CIC. We will keep him open. ADDENDUM TO HIS NOTE: The patient tolerated the procedure well. What I did know that he now seems to have a stone. I wonder if he had some suture material, but he definitely has a stone that was not previously well recognized. We are going to evaluate this. See the operative note. We did a cystoscopy and IOU. We opened very nicely the bladder neck. I am a little worried about overdoing it and perhaps causing incontinence. We are trying to do a delicate balance. In terms of recurrent cancer and doing a biopsy, we are going to keep an eye on this as a possibility. We will follow his serum PSA, and then we will try to decide what to do. I need to also review the pathology for the margins, etc. But in the meantime, the patient tolerated the procedure well today. He is going home with the Elise catheter, and then we will discuss further plan to care physically the bladder stone. This also needs to be addressed. Héctor Layton MD
--- NOTE | 2018-06-23 03:18 | OP ---
PROCEDURE DATE: 06/15/2018 PREOPERATIVE DIAGNOSES: Urolithiasis, hematuria, prostate cancer without any evidence of definite recurrent recalcitrant bladder neck contracture. POSTOPERATIVE DIAGNOSES: Urolithiasis, hematuria, prostate cancer without any evidence of definite recurrent recalcitrant bladder neck contracture, and a stone in the bladder, not a free floating stone, it looks like it attached to the wall. Perhaps, it is an anastomotic suture, but either way, see the pictures in chart, I did not do much with it today. We will discuss it. We did do a cystoscopy and internal optical urethrotomy. The bladder neck was very tight. We opened it nicely widely with cold knife anteriorly, but a little more than usual when we used a 22-Macedonian scope. Afterwards, we inspected the bladder. No other major abnormalities detected. Source of bleeding always seems to be the bladder neck contracture area. It does not seem upper tract or like. Cystoscope was introduced via urethra. Normal anterior urethra. No strictures. There is no prostatic issue really identified. At the bladder neck, it is very very tight. Again, I tried to scope through. I put a wire into it and we did a cold knife on top. We cut it nicely and anteriorly, which we cut a little bit more gingerly than usual, so maybe and we put a 22-Macedonian in. I do want to mention the bladder itself. I do not see any other abnormalities. What I do know is that no other specific abnormalities detected. Overall, the patient tolerated the procedure well without complications. We will discuss options for the stone. We do a cystoscopy and a litholapaxy whether we just observe the patient. I would like to have discussed the further options. At this point, I mentioned in brief the first initial plan is to teach him clean intermittent catheterization in the office. We are going to work on that as well. Further plans to follow and we will discuss different options regarding the stones in the bladder neck anastomotic area. It will be likely. Héctor Layton MD
== END 2018-06-15 18:37 | disposition home or self-care (01) | DRG 694 ==
LOC: C.ER 05:48 → C.9E 06:35 → C.5S 07:39
PROVIDERS: ADMIT Urology; ATTEND Urology
PROC: 0T7C8ZZ Dilation of Bladder Neck, Via Natural or Artificial Opening Endoscopic (ICD-10-PCS; 2018-06-15)
PROC: 0T7D8ZZ Dilation of Urethra, Via Natural or Artificial Opening Endoscopic (ICD-10-PCS; principal; 2018-06-15 15:30)
DX: N21.0 Calculus in bladder (principal); N32.0 Bladder-neck obstruction; N32.89 Other specified disorders of bladder; R33.9 Retention of urine, unspecified; R31.9 Hematuria, unspecified; Z85.46 Personal history of malignant neoplasm of prostate